=== PATIENT | female | born 2000 | race Caucasian/White ===

== ENCOUNTER 2021-12-02 03:58 | Observation (INO) | payer OTHER ==
[2021-12-02] MEDS ORDERED: Ondansetron PF 4 MG/2 ML Vial ONE ×2 (04:23→10:20)
[2021-12-02] MEDS ORDERED: Morphine 4 MG/ML VIAL ONE ×2 (04:23→05:26)
[2021-12-02 04:47] LABS: #Basophils 0.1 thou/uL (0.0-0.2); #Eosinphils 0.3 thou/uL (0.0-0.7); #Monocytes 0.5 thou/uL (0.11-0.59); #Neutrophils 3.8 thou/uL (1.40-6.50); %Basophils 1.2 % (0.0-1.0); %Eosinophils 3.8 % (0.0-10.0); %Lymphocytes 30.5 % (21.0-51.0); %Monocytes 7.8 % (0.0-10.0); %Neutrophils 56.7 % (42.0-75.0); Hemoglobin 12.2 g/dL (12.0-16.0); Mean Corpuscular HGB CONC 32.7 g/dL (32.0-36.0); Mean Corpuscular Hemoglobin 26.5 pg (27.0-31.0); Mean Corpuscular Volume 81.1 fL (78.0-98.0); Mean Platelet Volume 8.5 fL (7.4-10.4); Platelet Count 203 thou/uL (130-400); RBC Distribution Width 13.3 % (11.5-14.5); White Blood Cell (WBC) Count 6.7 thou/uL (4.8-10.8)
[2021-12-02 04:54] LABS: BHCG - Serum Negative (NEGATIVE); Pregs Control Background? CLEAR/WHITE (CLR/WHITE); Pregs Control Bar Appear? YES (CONTROL BAR)
[2021-12-02 05:09] LABS: ALT (SGPT) 8 U/L (8-55); AST (SGOT) 13 U/L (5-34); Alkaline Phosphatase 58 U/L (40-110); Anion Gap 17 mmol/L (10-20); BUN (Urea Nitrogen) 14 mg/dL (7.0-18.7); Bilirubin, Total 0.5 mg/dL (0.2-1.2); Calc. Creatinine Clearance 0 mL/min (70-130); Calcium 8.9 mg/dL (7.8-10.44); Carbon Dioxide 17 mmol/L (22-29); Chloride 109 mmol/L (98-107); Estimated GFR 67; Globulin 2.5 g/dL (2.4-3.5); Glucose 106 mg/dL (70-105); Potassium 3.4 mmol/L (3.5-5.1); Protein, Total 6.5 g/dL (6.0-8.3); Sodium 140 mmol/L (136-145)
[2021-12-02 05:39] LABS: Bacteria/HPF 3+ HPF (None Seen); Bilirubin Negative (Negative); Blood, Urine 2+ (Negative); Clarity Turbid (Clear); Glucose, Urine (Dipstick) Normal (Negative); Ketone, Urine Trace mg/dL (Negative); Leukocyte 250 Leu/uL (Negative); Nitrite 2+ (Negative); Protein, Urine (Dipstick) 20 mg/dL (Neg-Trace); RBC/HPF Greater than 50 HPF (0-3); Specific Gravity, Urine 1.019 (1.002-1.036); Urobilinogen Normal mg/dL (Less than 2); WBC/HPF Greater than 50 HPF (0-3); pH, Urine 6.5 (5.0-9.0)
[2021-12-02] MEDS ORDERED: cefTRIAXone\\ROCEPHIN 2 GM VIAL ONE (06:05)
[2021-12-02] MEDS ORDERED: Morphine 4 MG/ML VIAL SLOW IVP PRN (06:38)
[2021-12-02] MEDS ORDERED: Ondansetron ODT 4 MG TAB SL PRN (06:45)
[2021-12-02] MEDS ORDERED: Sodium Chloride 0.9% 1,000 ML IV SCH (06:45)
[2021-12-02] MEDS ORDERED: Ondansetron PF 4 MG/2 ML Vial IVP PRN (06:45)
[2021-12-02 07:05] LABS: SARS-CoV-2 NAA Rapid Test Not Detected (NotDetected)
[2021-12-02] MEDS ORDERED: diphenhydrAMINE 50 MG/ML VIAL ONE (09:57)
[2021-12-02] MEDS ORDERED: Fentanyl 100 MCG/2 ML VIAL ONE ×2 (09:57→10:09)
[2021-12-02] MEDS ORDERED: Hydrocortisone Sod Succ/PF 100 mg/2 ml Vial IVP SCH (10:15)
[2021-12-02] MEDS ORDERED: PROPOFOL 200 MG/20 ML VIAL ONE (10:20)
[2021-12-02] MEDS ORDERED: Ketorolac Tromethamine 30 MG/ML VIAL ONE (10:20)
[2021-12-02] MEDS ORDERED: Lidocaine 1% MPF 2 ML VIAL ONE (10:20)
[2021-12-02] MEDS ORDERED: Phenazopyridine HCl 100 MG TAB ONE (10:57)
[2021-12-02] MEDS ORDERED: Oxybutynin 5 MG TAB ONE (10:58)
== END 2021-12-02 13:32 | disposition home or self-care (01) ==
LOC: ERS 03:58 → ERHOLD 06:24 → SURG A 10:20
PROVIDERS: ADMIT Surgery; ATTEND Surgery
PROC: 0T778DZ Dilation of Left Ureter with Intraluminal Device, Via Natural or Artificial Opening Endoscopic (ICD-10-PCS; principal; 2021-12-02)
DX: N20.2 Calculus of kidney with calculus of ureter (principal); N39.0 Urinary tract infection, site not specified; B96.20 Unspecified Escherichia coli [E. coli] as the cause of diseases classified elsewhere; F12.10 Cannabis abuse, uncomplicated; Z16.23 Resistance to quinolones and fluoroquinolones; Z88.1 Allergy status to other antibiotic agents; Z91.041 Radiographic dye allergy status; Z20.822 Contact with and (suspected) exposure to COVID-19
CPT/HCPCS: 36415; 80053; 81003; 81015; 84703; 85025; 96374; 96375; 96376; C2617; G0378; J0696; J1200; J1885; J2270; J2405; J2704; J3010; U0002

== ENCOUNTER 2021-12-13 16:25 | Outpatient (CLI) | payer OTHER ==
[2021-12-13 17:46] LABS: Hemoglobin 11.9 g/dL (12.0-15.5); Mean Corpuscular HGB CONC 30.7 g/dL (32.0-36.0); Mean Corpuscular Hemoglobin 25.3 pg (27.0-33.0); Mean Corpuscular Volume 82.2 fl (81.6-98.3); Mean Platelet Volume 10.5 fl (7.4-10.4); Platelet Count 265 10x3/uL (150-450); Red Blood Cell (RBC) Count 4.71 10x6/uL (3.90-5.03); White Blood Cell (WBC) Count 6.7 10x3/uL (3.5-10.5)
[2021-12-13 17:55] LABS: BHCG - Serum Negative (NEGATIVE); Pregs Control Background? CLEAR/WHITE (CLR/WHITE); Pregs Control Bar Appear? YES (CONTROL BAR)
[2021-12-13 17:58] LABS: PTT 25.1 sec (22.0-33.0); Prothrombin Time 10.4 sec (9.5-12.1)
[2021-12-13 18:04] LABS: Anion Gap 15 mmol/L (10-20); BUN (Urea Nitrogen) 13 mg/dL (7.0-18.7); Calc. Creatinine Clearance 0 mL/min (70-130); Calcium 8.8 mg/dL (7.8-10.44); Carbon Dioxide 21 mmol/L (22-29); Chloride 105 mmol/L (98-107); Estimated GFR 71; Glucose 83 mg/dL (70-105); Potassium 4.2 mmol/L (3.5-5.1); Sodium 137 mmol/L (136-145)
== END 2021-12-13 16:26 | disposition home or self-care (01) ==
LOC: LABBT 16:25
PROVIDERS: ATTEND Urology
DX: Z01.812 Encounter for preprocedural laboratory examination (principal); N20.2 Calculus of kidney with calculus of ureter; Z20.822 Contact with and (suspected) exposure to COVID-19
CPT/HCPCS: 80048; 84703; 85027; 85610; 85730; 87811

== ENCOUNTER 2021-12-18 07:36 | Day surgery (SDC) | payer OTHER ==
[2021-12-16 12:22] VITALS: BMI 23.9
[2021-12-18] MEDS ORDERED: Lidocaine 1% MPF 2 ML VIAL ONE ×2 (08:05→09:58)
[2021-12-18] MEDS ORDERED: diphenhydrAMINE 50 MG/ML VIAL ONE (08:27)
[2021-12-18] MEDS ORDERED: fentaNYL Citrate/PF 100 MCG/2 ML SYRINGE ONE (08:28)
[2021-12-18] MEDS ORDERED: Midazolam HCl 2 mg/2 ml Vial ONE (08:28)
[2021-12-18] MEDS ORDERED: SUGAMMADEX SODIUM 200 MG/2 ML VIAL ONE (08:28)
[2021-12-18] MEDS ORDERED: cefTRIAXone\\ROCEPHIN 2 GM in Sodium Chloride 0.9% 100 ML IVPB SCH (09:15)
[2021-12-18] MEDS ORDERED: cefTRIAXone\\ROCEPHIN 2 GM VIAL ONE (09:52)
[2021-12-18] MEDS ORDERED: Sodium Chloride 0.9% 100 ML ONE (09:52)
[2021-12-18] MEDS ORDERED: PROPOFOL 200 MG/20 ML VIAL ONE (09:58)
[2021-12-18] MEDS ORDERED: Rocuronium Bromide 10 MG/ML (10ML VIAL) ONE (09:58)
[2021-12-18] MEDS ORDERED: Dexamethasone 20 MG/5 ML VIAL ONE (09:58)
[2021-12-18] MEDS ORDERED: Ondansetron PF 4 MG/2 ML Vial ONE (09:58)
[2021-12-18] MEDS ORDERED: Phenylephrine 10 MG/ML VIAL ONE (09:58)
[2021-12-18] MEDS ORDERED: Ketorolac Tromethamine 30 MG/ML VIAL ONE (09:58)
[2021-12-18] MEDS ORDERED: Phenazopyridine HCl 100 MG TAB ONE (11:06)
[2021-12-18] MEDS ORDERED: Oxybutynin 5 MG TAB ONE (11:12)
== END 2021-12-18 13:13 | disposition home or self-care (01) ==
LOC: SDC 07:36
PROVIDERS: ATTEND Urology
DX: N20.2 Calculus of kidney with calculus of ureter (principal); N30.00 Acute cystitis without hematuria; B96.20 Unspecified Escherichia coli [E. coli] as the cause of diseases classified elsewhere; Z79.2 Long term (current) use of antibiotics; Z79.3 Long term (current) use of hormonal contraceptives; Z88.1 Allergy status to other antibiotic agents; Z91.041 Radiographic dye allergy status
CPT/HCPCS: 74018; 74420; 82365; 88300; C1769; C2617; J0696; J1100; J1200; J1885; J2250; J2370; J2405; J2704; J3490

== ENCOUNTER 2022-07-17 11:31 | Outpatient (CLI) | payer OTHER ==
[2022-07-17 12:34] LABS: Bilirubin Neg (Negative); Blood, Urine Negative (Negative); Clarity Clear (Clear); Glucose, Urine (Dipstick) Normal (Negative); Ketone, Urine Negative (Negative); Leukocyte Negative (Negative); Nitrite Negative (Negative); Protein, Urine (Dipstick) Negative (Neg-Trace); Specific Gravity, Urine 1.015 (1.005-1.030); Urobilinogen Normal mg/dL (Less than 2); pH, Urine 6.5 (5.0-9.0)
[2022-07-17 12:44] LABS: Anion Gap 13 mmol/L (10-20); BUN (Urea Nitrogen) 9 mg/dL (7.0-18.7); Calc. Creatinine Clearance 0 mL/min (70-130); Calcium 9.5 mg/dL (7.8-10.44); Carbon Dioxide 23 mmol/L (22-29); Chloride 107 mmol/L (98-107); Estimated GFR 99; Glucose 85 mg/dL (70-105); Potassium 4.3 mmol/L (3.5-5.1); Sodium 139 mmol/L (136-145)
[2022-07-17 12:46] LABS: Bacteria/HPF None Seen HPF (None Seen); RBC/HPF 0-3 HPF (0-3); Squamous Epithelial 0-3 HPF (0-3); WBC/HPF 0-3 HPF (0-3)
[2022-07-17 12:47] LABS: Hemoglobin 13.4 g/dL (12.0-15.5); Mean Corpuscular HGB CONC 30.2 g/dL (32.0-36.0); Mean Platelet Volume 10.7 fl (7.4-10.4); Platelet Count 263 10x3/uL (150-450); RBC Distribution Width 13.5 % (11.5-14.5); Red Blood Cell (RBC) Count 5.35 10x6/uL (3.90-5.03); White Blood Cell (WBC) Count 4.7 10x3/uL (3.5-10.5)
[2022-07-17 12:48] LABS: PTT 27.9 sec (22.0-33.0); Prothrombin Time 10.4 sec (9.5-12.1)
[2022-07-17 13:01] LABS: BHCG - Serum Negative (NEGATIVE); Pregs Control Background? CLEAR/WHITE (CLR/WHITE); Pregs Control Bar Appear? YES (CONTROL BAR)
== END 2022-07-17 11:32 | disposition home or self-care (01) ==
LOC: LABBT 11:31
PROVIDERS: ATTEND Urology
DX: Z01.812 Encounter for preprocedural laboratory examination (principal); N20.2 Calculus of kidney with calculus of ureter
CPT/HCPCS: 80048; 81001; 84703; 85027; 85610; 85730; 87086

== ENCOUNTER 2022-07-30 05:31 | Day surgery (SDC) | payer OTHER ==
[2022-07-29 10:34] VITALS: BMI 23.0
[2022-07-30] MEDS ORDERED: Levofloxacin 500 mg/D5W 100 ml Premix Bag ONE (06:05)
[2022-07-30] MEDS ORDERED: diphenhydrAMINE 25 MG CAP ONE (06:05)
[2022-07-30] MEDS ORDERED: diphenhydrAMINE 50 MG/ML VIAL ONE (06:07)
[2022-07-30] MEDS ORDERED: Hydrocortisone Sod Succ/PF 100 mg/2 ml Vial IVP SCH (06:30)
[2022-07-30] MEDS ORDERED: fentaNYL PF 100 MCG/2 ML SYRINGE ONE (06:42)
[2022-07-30] MEDS ORDERED: Hydrocortisone Sod Succ/PF 100 mg/2 ml Vial ONE (07:06)
[2022-07-30] MEDS ORDERED: Famotidine/PF 20 mg/2ml Vial ONE (07:07)
[2022-07-30] MEDS ORDERED: Iopamidol 10 ML FS ONE (07:13)
[2022-07-30] MEDS ORDERED: fentaNYL 50 mcg/mL 1 mL Vial ONE (07:18)
[2022-07-30] MEDS ORDERED: SUGAMMADEX SODIUM 200 MG/2 ML VIAL ONE (07:19)
[2022-07-30] MEDS ORDERED: Rocuronium Bromide 10 MG/ML (10ML VIAL) ONE (07:34)
[2022-07-30] MEDS ORDERED: Ondansetron PF 4 MG/2 ML Vial ONE (07:34)
[2022-07-30] MEDS ORDERED: Succinylcholine Chloride 100 MG/5 ML SYRINGE FS ONE (07:34)
[2022-07-30] MEDS ORDERED: Ketorolac Tromethamine 30 MG/ML VIAL ONE (07:34)
[2022-07-30] MEDS ORDERED: PROPOFOL 200 MG/20 ML VIAL ONE (07:34)
[2022-07-30] MEDS ORDERED: Lidocaine 1% PF 5 ML VIAL ONE (07:34)
[2022-07-30] MEDS ORDERED: Dexamethasone 20 MG/5 ML VIAL ONE (07:34)
[2022-07-30] MEDS ORDERED: Iopamidol 20 ML FS ONE (07:45)
[2022-07-30] MEDS ORDERED: Phenazopyridine HCl 100 MG TAB ONE (08:36)
[2022-07-30] MEDS ORDERED: Oxybutynin 5 MG TAB ONE (08:36)
[2022-07-30] MEDS ORDERED: Morphine 2 MG/ML VIAL ONE (09:49)
[2022-07-30] MEDS ORDERED: HYDROcodone/Acetaminophen 5/325 mg Tablet ONE (10:07)
== END 2022-07-30 10:30 | disposition home or self-care (01) ==
LOC: SDC 05:31
PROVIDERS: ATTEND Urology
PROC: 0T768DZ Dilation of Right Ureter with Intraluminal Device, Via Natural or Artificial Opening Endoscopic (ICD-10-PCS; principal; 2022-07-30)
PROC: 0TC08ZZ Extirpation of Matter from Right Kidney, Via Natural or Artificial Opening Endoscopic (ICD-10-PCS; principal; 2022-07-30)
DX: N20.0 Calculus of kidney (principal); Q62.61 Deviation of ureter; Z79.890 Hormone replacement therapy; Z88.1 Allergy status to other antibiotic agents; Z91.041 Radiographic dye allergy status
CPT/HCPCS: 74018; 74420; 82365; 88300; C1747; C1769; C2617; J1200; J1720; J1956; J2272; J3010; Q9966; S0028